=== PATIENT | male | born 1930 | race Caucasian/White ===

== ENCOUNTER 2017-06-30 10:31 | Observation (INO) | payer MEDICARE ==
[2017-06-30 11:24] LABS: #Eosinphils 0.3 thou/uL (0.0-0.7); #Lymphocytes 1.1 thou/uL (1.20-3.40); #Monocytes 0.7 thou/uL (0.11-0.59); #Neutrophils 4.3 thou/uL (1.40-6.50); %Basophils 0.3 % (0.0-1.0); %Eosinophils 4.3 % (0.0-10.0); %Lymphocytes 16.6 % (21.0-51.0); %Monocytes 10.7 % (0.0-10.0); Hematocrit 45.1 % (42.0-52.0); Mean Platelet Volume 8.6 fL (7.4-10.4); White Blood Cell (WBC) Count 6.4 thou/uL (4.8-10.8)
[2017-06-30 11:43] LABS: ALT (SGPT) 24 U/L (8-55); AST (SGOT) 25 U/L (5-34); Alkaline Phosphatase 116 U/L (40-150); Anion Gap 13 mmol/L (10-20); BUN (Urea Nitrogen) 23 mg/dL (8.4-25.7); Bilirubin, Total 0.6 mg/dL (0.2-1.2); CK (CPK) 70 U/L (30-200); Calc. Creatinine Clearance 0 mL/min (70-130); Carbon Dioxide 27 mmol/L (23-31); Chloride 103 mmol/L (98-107); Estimated GFR-MDRD 56; Protein, Total 7.3 g/dL (5.8-8.1)
[2017-06-30 11:45] LABS: Troponin I 0.011 ng/mL (< 0.028)
--- NOTE | 2017-06-30 11:45 | CT ---
CT HEAD NONCONTRAST: Comparison: None. Indication: Aphasia, facial numbness. FINDINGS: There is moderate multifocal white matter hyperattenuation throughout each cerebral hemisphere. No i ntracranial hemorrhage, mass effect or midline shift. There is mild age related parenchymal volume l oss with compensatory dilatation of the ventricular system. IMPRESSION: 1. No acute intracranial hemorrhage or mass effect. 2. Moderate chronic microvascular ischemic disease. POS: [facility]
[2017-06-30] MEDS ORDERED: Ondansetron ODT 4 MG TAB PO PRN (13:57)
[2017-06-30] MEDS ORDERED: Sodium Chloride 0.9% 1,000 ML IV SCH (13:57)
[2017-06-30 14:10] VITALS: BMI 26.5
[2017-06-30] MEDS ORDERED: Aspirin 325 mg Enteric Coated Tablet PO SCH (14:15)
[2017-06-30 14:17] LABS: Hemoglobin A1c 5.5 % (4.0-6.0)
[2017-06-30] MEDS ORDERED: Enoxaparin Sodium 40 MG/0.4 ML SYRINGE SC SCH (14:30)
[2017-06-30] MEDS ORDERED: HYDROcodone/Acetaminophen 5/325 mg Tablet PO PRN (15:18)
--- NOTE | 2017-06-30 15:30 | HP-2 ---
CODE STATUS: FULL. PRIMARY CARE PHYSICIAN: Yolanda ward. ATTENDING: Mary Jane Quintana M.D. PGY-1: Reggie Fang M.D. CHIEF COMPLAINT: Difficulty talking, dysarthria. HISTORY OF PRESENT ILLNESS: This is an 86-year-old male who presents with dysarthria, loss of voice and left-sided facial droop that lasted less than 1 minute yesterday after drinking some water. He denies any vision changes, loss of consciousness, syncope, chest pain, shortness of breath. He fuentes s endorse mild dizziness. Denies any weakness in extremities bilaterally. The onset of symptoms wa s yesterday, he has had no symptoms since. He had one similar episode to this one and a half years ago which affected his speech. He was at the Cardiology office today and when described his symptom s to his housekeeping attendant, the housekeeping attendant sent him to the ED to be evaluated. PAST MEDICAL HISTORY: Hypertension, hyperlipidemia, and GERD. PAST SURGICAL HISTORY: Cornea surgeries bilaterally and a prostate surgery. ALLERGIES: SULFA DRUGS. MEDICATIONS: 1. Simvastatin 80 mg half a pill daily. 2. HCTZ 25 mg. 3. Metoprolol 50 mg ER. 4. Terazosin 2 mg. 5. Ranitidine 150 mg. 6. Ecotrin. 7. Calcium 600 mg. 8. I-Caps 2 per day. 9. Simbrinza 2 drops per day. 10. Latanoprost. 11. Prednisolone acetate. 12. Hydrocodone 5/325 p.r.n. for pain. FAMILY HISTORY: Noncontributory. SOCIAL HISTORY: No alcohol. No tobacco or no drug use. He is a burr currently. REVIEW OF SYSTEMS: General: He denies any fevers or chills or weight changes, night sweats. Eyes: He denies any vision changes or eye pain, but he did have recent eye surgery. ENT: Denies any na leno congestion, rhinorrhea, or sore throat. Respiratory: Denies cough, congestion. He does have e xertional shortness of breath that he has been evaluated by Cardiology. Cardiovascular: Denies lupe st pain, palpitations, or edema. Gastrointestinal: Denies any nausea, vomiting, diarrhea, constipa tion, abdominal pain, or GI bleeding. Genitourinary: Denies any incontinence, dysuria, polyuria, d ischarge. Skin: Denies any rashes, lesions, jaundice, or itching. Neurologic: Denies any weaknes s, numbness, syncope, or seizures. Psychiatric: He denies anxiety or depression. PHYSICAL EXAMINATION: VITAL SIGNS: Blood pressure was 202/92, pulse was 61, respiration was 16, pulse ox 97% on room air. Currently, weighs 70 kilograms. GENERAL: He was alert, oriented x3, well-developed, well-nourished, and appropriately interactive. HEENT: PERRLA, EOMI and conjunctivae within normal limits. ENT: Tympanic membranes are pearly diez without bulging or erythema. Nasal mucosa and oropharynx w ithin normal limits. NECK: Supple, without lymphadenopathy, without thyromegaly. CARDIOVASCULAR: Regular rate and rhythm. No murmur. Radial and pedal pulses were equal bilaterall y. RESPIRATORY: Normal efforts, no retractions, clear lungs auscultations bilaterally. ABDOMEN: Soft, nontender to palpation. Bowel sounds are present x4. No mass or distention. EXTREMITIES: No clubbing, cyanosis or edema. MUSCULOSKELETAL: Structure, tone, and range of motion was normal. He did have some of pain with ra nge of motion on his left shoulder. Dr. Yao the upper level resident on examination did note some mild facial droop. His family and myself did not note any facial droop during examination. NEUROLOGIC: No focal and neurologic deficits. Cranial nerves II-XII are grossly intact. GCS of 15 . PSYCHIATRIC: He was appropriate. LABORATORY DATA: White blood cell count 6.4, platelet count 155, hemoglobin 14.8, hematocrit 45.1. Sodium 139, potassium 4.4, chloride 103, CO2 of 27, BUN 23, creatinine 1.23, glucose 91, calcium wa s 10. Total protein 7.3, albumin was 25, total bilirubin was 0.6. AST 25, ALT 24, alkaline phospha tase 116, CK-MB was 2.1. Troponins were 0.01. IMAGING: CT of the brain showed no acute intracranial abnormalities, moderate chronic microvascular ischemic changes were present. ASSESSMENT AND PLAN: An 86-year-old male with dysarthria and left-sided facial droop. 1. We will rule out transient ischemic attack. We have put in for stroke team and admit to stroke unit. CT of without contrast showed no intracranial abnormalities. We are going to put him on an a spirin. Allow for permissive hypertension, put on hydralazine p.r.n. as needed. We will put a PT, OT, and speech evaluation, NIH stroke scale and q.4 h neuro checks. We are going to make him n.p.o. until speech evaluation. We are going to allow for a carotid Doppler. We are going to get a carot id Doppler and an MRI to see if there is anything going on. Also, an EKG, fasting lipid panel and A 1c. 2. For hypertension, we are going to allow for permissive hypertension up to 220/110 for 24 hours a nd then we will manage him from there. 3. Hyperlipidemia. We are going to change him to atorvastatin from his simvastatin home dose. 4. Gastroesophageal reflux disease, ranitidine. Home meds. Disposition and length of hospital stay will be observation and 1 midnight. Symptomatic medications will be provided. History and physical exam as well as management was discussed with Dr. Quintana.
[2017-06-30] MEDS ORDERED: Famotidine 20 MG TAB PO PRN (16:00)
--- NOTE | 2017-06-30 17:31 | MRI ---
BRAIN MRI WITH AND WITHOUT CONTRAST 06/30/17 INDICATION: Stroke. COMPARISON: Head CT same day. FINDINGS: Age related parenchymal volume loss with compensatory dilatation of ventricular system is present. T here is no acute territorial infarction, mass effect or midline shift. There is moderate chronic mynor rovascular ischemic disease in the cerebral white matter. No evidence of enhancing intra-axial mass. Imaged central skull base flow voids are patent. [place] intraocular lenses absent. There is a parti ally imaged retention cyst of the left maxillary sinus. IMPRESSION: 1. Moderate chronic microvascular ischemic disease of the cerebral white matter. 2. No acute territorial infarction or mass effect. POS: [facility]
--- NOTE | 2017-06-30 18:27 | ULT ---
CAROTID DOPPLER ULTRASOUND 06/30/17 HISTORY: Transient ischemic attack. COMPARISON: None. COMPARISON: None. TECHNIQUE: Real time diez scale color doppler with spectral analysis of the extracranial carotid arteries and v ertebral arteries is performed with the linear transducer. FINDINGS: Moderate atherosclerotic plaque of the carotid bulbs bilaterally. Antegrade flow in both vertebral a rteries. No elevated peak systolic velocity within the internal carotid arteries. Right ICA/CCA ratio is 1.23 and left ICA/CCA ratio is 0.47. IMPRESSION: No evidence of hemodynamically significant stenosis. POS: OFF
[2017-06-30] MEDS ORDERED: Latanoprost 0.005% Ophth Soln 2.5 ml Bottle R EYE SCH ×3 (21:00)
[2017-06-30] MEDS ORDERED: Non-Formulary Item 1 EACH (Brinzolamide/Brimonidine Tart [Simbrinza 1%/0.2% Ophth Susp] 1 OP SCH (21:00)
[2017-06-30] MEDS ORDERED: Atorvastatin Calcium 40 MG TAB PO SCH (21:00)
[2017-06-30] MEDS ORDERED: FLU VACC TS2017-18 (>65YR) 0.5 ML SYRINGE IM ONE (21:00)
[2017-06-30] MEDS ORDERED: Terazosin HCl 1 MG CAP PO SCH (21:00)
[2017-06-30] MEDS ORDERED: Latanoprost 0.005% Ophth Soln 2.5 ml Bottle EA EYE SCH (21:00)
[2017-06-30] MEDS: Brinzolamide 1% Ophth Soln 10 ml Bottle R EYE SCH (21:34)
[2017-06-30] MEDS: Brimonidine Tartrate 0.2% Ophth Soln 5 ml Bottle R EYE SCH (21:34)
[2017-07-01 07:35] VITALS: TEMP 98.1
[2017-07-01] MEDS: Brimonidine Tartrate 0.2% Ophth Soln 5 ml Bottle R EYE SCH (08:19)
[2017-07-01] MEDS: Brinzolamide 1% Ophth Soln 10 ml Bottle R EYE SCH (08:19)
[2017-07-01] MEDS ORDERED: Furosemide 20 MG TAB PO SCH (09:00)
[2017-07-01] MEDS ORDERED: Calcium Carbonate 600 MG TAB PO SCH (09:00)
[2017-07-01] MEDS ORDERED: Enoxaparin Sodium 40 MG/0.4 ML SYRINGE SC SCH (09:00)
[2017-07-01] MEDS ORDERED: Aspirin 325 mg Enteric Coated Tablet PO SCH (09:00)
[2017-07-01] MEDS ORDERED: prednisoLONE 1% Ophth Susp 5 ml Bottle R EYE SCH (09:00)
[2017-07-01] MEDS ORDERED: Hydrochlorothiazide 25 MG TAB PO SCH (09:00)
--- NOTE | 2017-07-01 09:17 | PDOC.FM ---
- Subjective Subjective: Pt doing well this morning. He denies numbness, tingling, weakness, dysarthria, chest pain and dyspnea. - Objective MAR Reviewed: Yes Vital Signs & Weight: Vital Signs (12 hours) Temp Pulse Resp BP Pulse Ox 07/01/17 08:00 98.1 F 61 16 07/01/17 07:34 98.1 F 61 16 149/73 H 95 07/01/17 03:44 97.4 F L 56 L 16 125/61 95 07/01/17 00:31 98 F 54 L 16 134/61 97 Weight Weight 69.853 kg I&O: 06/30/17 07/01/17 07/02/17 06:59 06:59 06:59 Intake Total 1330 Balance 1330 Result Diagrams: 06/30/17 11:09 06/30/17 11:09 <Kacie Yao - Last Filed: 07/01/17 09:14> - Objective Vital Signs & Weight: Vital Signs (12 hours) Temp Pulse Resp BP Pulse Ox 07/01/17 08:00 98.1 F 61 16 07/01/17 07:34 98.1 F 61 16 149/73 H 95 07/01/17 03:44 97.4 F L 56 L 16 125/61 95 07/01/17 00:31 98 F 54 L 16 134/61 97 Weight Weight 69.853 kg I&O: 06/30/17 07/01/17 07/02/17 06:59 06:59 06:59 Intake Total 1330 Balance 1330 Result Diagrams: 06/30/17 11:09 06/30/17 11:09 <Matthew Gallegos - Last Filed: 07/01/17 10:32> Phys Exam - Physical Examination Constitutional: NAD Respiratory: clear to auscultation bilateral bradycardia Gastrointestinal: soft Musculoskeletal: no edema Neurological: non-focal (No focal weakness; CN II-XII intact; normal strength and sensation) Psychiatric: normal affect, A&O x 3 <Kacie Yao - Last Filed: 07/01/17 09:14> Dx/Plan (1) TIA (transient ischemic attack) Status: Resolved Plan: Resolved. Risk modification with ASA therapy and high dose statin therapy. Pt has had elevated blood pressures while in the hospital, however he states his blood pressures are normal at home. No changes made to antihypertensive regimen A1C: 5.5 Will discharge today with outpatient follow-up (2) Hypertension Code(s): I10 - ESSENTIAL (PRIMARY) HYPERTENSION Status: Acute Plan: BP's have normalized. continue pt's home regimen. (3) Hyperlipidemia Code(s): E78.5 - HYPERLIPIDEMIA, UNSPECIFIED Status: Acute Plan: Continue Atorvastatin. <Kacie Yao - Last Filed: 07/01/17 09:14> - Plan Plan: Seen and examined with Dr. Yao. King portions of the history and physical exam repeated. I agree with their assessment and plan with the following addendum. Improved. Labile blood pressures but recently adjusted 2/2 symptomatic hypotension by PCP. If all studies negative will d/c with PCP followup. <Matthew Gallegos - Last Filed: 07/01/17 10:32>
--- NOTE | 2017-07-01 11:27 | DIS-2 ---
DATE OF ADMISSION: 06/30/2017 DATE OF DISCHARGE: 07/01/2017 RESIDENT: Kacie Yao M.D. ADMITTING ATTENDING: Dr. Quintana. DISCHARGE ATTENDING: Dr. Gallegos. CONSULTS: Placed were to PT, OT, speech. PROCEDURES: There are no procedures. PRIMARY DIAGNOSIS: Transient ischemic attack. SECONDARY DIAGNOSES: 1. Hypertension. 2. Hyperlipidemia. DISCHARGE MEDICATIONS: Include aspirin 81 mg, atorvastatin 40 mg, metoprolol 50 mg, HCTZ 25 mg, ter azosin 2 mg. DISCONTINUED MEDICATIONS: There were no discontinued medications. HOSPITAL COURSE: Patient is an 86-year-old male, who presented with dysarthria, loss of voice, left -sided facial droop two days prior to admission. He said the episode lasted less than a minute and had a similar episode a year and a half before. He went to his nuclear security officer the day of admission, marge zaidi told him to go to the ED, and was admitted, labs were performed. He had a CT of the brain, which showed no acute hemorrhage or mass effect. He was admitted under the resident service of Dr. Bon fay where further studies were ordered. Pertinent labs include LDL 92, HDL 38, A1c 5.5, total matthias sterol 150. BP on admission was systolic 198-202, and improved over the course of his hospitalizati on with blood pressure medication and hydralazine as needed. Other imaging included carotid Doppler s, which gave no evidence of hemodynamically significant stenosis, and brain MRI, which showed no ac davina infarction or mass effect due to his lack of current symptoms and negative imaging workup. The patient will be discharged today. DISPOSITION: Stable. DISCHARGE INSTRUCTIONS: He is to be discharged to home on a regular diet with ad-johan activity and louis marino follow up with his PCP to control his blood pressure.
[2017-07-01 12:56] VITALS: BP 155/74
--- NOTE | 2017-07-02 06:26 | EKG ---
Test Reason : Blood Pressure : / mmHG Vent. Rate : 059 BPM Atrial Rate : 059 BPM P-R Int : 152 ms QRS Dur : 114 ms QT Int : 472 ms P-R-T Axes : -01 011 001 degrees QTc Int : 467 ms Sinus bradycardia Possible Lateral infarct , age undetermined (Doubtful) Nonspecific ST and T wave abnormality inferiorly Abnormal ECG No previous ECGs available Confirmed by BRUNILDA BARRIENTOS ([id number]) on 07/02/2017 6:25:33 AM Referred By: ARLINE Confirmed By:BRUNILDA BARRIENTOS
== END 2017-07-01 11:43 | disposition home or self-care (01) ==
LOC: ERS 10:31 → 2SE 11:58
PROVIDERS: ADMIT Family Medicine; ATTEND Family Medicine
DX: G45.9 Transient cerebral ischemic attack, unspecified (principal); I10 Essential (primary) hypertension; E78.5 Hyperlipidemia, unspecified; K21.9 Gastro-esophageal reflux disease without esophagitis; Z88.2 Allergy status to sulfonamides; Z79.82 Long term (current) use of aspirin; Z79.899 Other long term (current) drug therapy; Z98.890 Other specified postprocedural states
CPT/HCPCS: 70450; 70553; 80053; 80061; 82550; 82553; 83036; 84484; 85025; 93005; 93880; 96372 ×2; 97139 ×2; 99285; G0378; G8978; G8979; G8980; G8987; G8988; G8989; 36415; 93010; A4216; G8996-GN-CH; G8997-GN-CH; J1650